=== PATIENT | female | born 1945 | race Caucasian/White ===

== ENCOUNTER → 2016-12-04 | Outpatient (CLI) | payer MEDICARE, MEDICAID | END | disposition disaster alternative care site (69) | LOC: GAMB 13:40 | DX: R07.9 Chest pain, unspecified (principal); M79.602 Pain in left arm; I48.91 Unspecified atrial fibrillation; R68.84 Jaw pain; I48.2 Chronic atrial fibrillation; Z79.01 Long term (current) use of anticoagulants; Z88.2 Allergy status to sulfonamides | CPT/HCPCS: A0422; A0425; A0427 ==